=== PATIENT | female | born 1975 | race Caucasian/White ===

== ENCOUNTER 2020-11-02 14:39 | Emergency (ER) | payer OTHER, SELFPAY ==
[2020-11-02 14:57] VITALS: BP 146/78; PULSE 69; RESP 16; TEMP 36.6; O2SAT 98; BMI 27.4
== END 2020-11-02 16:24 | disposition left against medical advice (07) ==
PROVIDERS: Emergency Provider Emergency Medicine
DX: M54.2 Cervicalgia (principal); M79.642 Pain in left hand; M79.641 Pain in right hand; M54.5 Low back pain; M79.605 Pain in left leg; M79.604 Pain in right leg
CPT/HCPCS: 99281; 99282

== ENCOUNTER 2024-04-17 23:44 | Emergency (ER) | payer OTHER, SELFPAY ==
[2024-04-18 00:22] VITALS: BP 143/90; PULSE 68; RESP 18; TEMP 36.8; O2SAT 98; BMI 26.8
== END 2024-04-18 03:46 | disposition left against medical advice (07) ==
PROVIDERS: Emergency Provider Emergency Medicine
DX: S61.213A Laceration without foreign body of left middle finger without damage to nail, initial encounter (principal); W26.8XXA Contact with other sharp object(s), not elsewhere classified, initial encounter; Y93.G3 Activity, cooking and baking; Y92.9 Unspecified place or not applicable; Y99.9 Unspecified external cause status
CPT/HCPCS: 99281